=== PATIENT | female | born 1985 | race Hispanic/Latino ===

== ENCOUNTER 2016-11-15 13:01 | Emergency (ER) | payer OTHER ==
[~2016-11-15] VITALS: Ht 157.5 cm; Wt 86.4 kg
[~2016-11-15 13:01] MED LIST: CEPH500C PO; ONDA8TAB10 PO
[2016-11-15 13:31] VITALS: BP 143/93; PULSE 92; RESP 10; O2SAT 98
--- NOTE | 2016-11-15 15:44 | ED.REPORT ---
HPI-Overdose/Alcohol Toxicity Date of Service Nov 15, 2016 ED Provider: Doc,Ed MD History of Present Illness: body felt twitching, brain on fire, no motor skills. finished antibiotics for sinus infection 4 days ago. having headaches, congestion. anxiety high because of congestion. took a marijuaina mint and the above symptoms happened. Seen at the [facility]. had 2 rounds of antibiotics and nasal spray is helping. has bad headaches on an ongoing basis. Nothing different about this headache Nursing Notes Stated Complaint: REACTION TO MARIJUANA MINT Chief Complaint: Allergic Reaction Nursing Notes Reviewed: Yes Allergies: Coded Allergies: Penicillins (Verified Allergy, Severe, ANAPHYLAXIS, 09/29/15) metoclopramide (Verified Adverse Reaction, Mild, feeling of anxiety, ) Scheduled Cephalexin (Cephalexin) 500 Mg Capsule 500 MG PO QID Scheduled PRN Ondansetron ODT (Ondansetron ODT) 8 Mg Tab.rapdis 8 MG PO Q4H PRN PRN For Nausea General Time Seen by Provider: 15:44 Chief Complaint Intoxicated, illicit drug Hx Obtained From: Patient Onset Occurred: Just prior to arrival Risk-Overdose/Alcohol Tox )( Suicide Risk Stratification No: Access to firearms, Alcohol use, Close associate suicide, Family Hx of Suicide, Previous attempt, Prior psych admission, Substance abuse RF Statements: No risk factors Past Medical History Past Medical History Chronic constipation Post- depression Anxiety Intermittent HTN, non-diagnosed Migraines Reports: Asthma Past [facility] History [facility] Reports: Appendectomy Reports: Tubal ligation Smoking History Never Smoker Social History Alcohol Use: Denies alcohol use Drug Use: Denies drug use Other Social History: , Lives with children Occupation lives with , work at [employer] 11/15/2016 Ambulatory Status Independent Review of Systems Basic Review of Systems : No dysuria, No frequency Allergy / Immune: No allergy Physical Exam Initial Vital Signs Vital Signs (First) Date Time Temp Pulse Resp B/P Pulse Ox O2 Delivery O2 Flow Rate FiO2 11/15/16 13:31 36.4 92 10 143/93 98 Room Air Initial VS: Reviewed, Vital signs normal Head / Eyes: Atraumatic, Normocephalic, PERRL ENT: Mucous membranes moist, Conjunctiva normal, No scleral icterus Neck: Supple, Non-tender, Full range of motion Back: No CVA tenderness Lymphatic: No lymphadenopathy Extremities: Vascular intact, Neuro intact, No swelling, No tenderness Skin: Warm, Dry, No cyanosis General/Constitutional: Awake, Alert, No acute distress, Well appearing, Well developed, Well hydrated, Well nourished, Cooperative, Not toxic appearing Respiratory / Chest: Atraumatic, Breath sounds NL, Breath sounds = bilat, No respiratory distress Cardiovascular: Heart rate NL, Regular rhythm, Heart sounds NL, No gallop Abdomen: Atraumatic, Soft, Non-tender, McBurney's non-tender Neurologic: Oriented X3, Speech NL, No motor deficits All reported neuro symptoms have resolved by the time she was seen except for the headache Psychiatric: Affect NL, Mood NL, Not suicidal ENT: Atraumatic, Airway patent, Mucous membranes moist, Pharynx NL Interpretation & Diagnostics Lab Results Interpretation Test 11/15/16 19:00 Hold Urine Received (Received) CT Head Interpretation PROCEDURE: CT BRAIN WITHOUT CONTRAST ([id number]) INDICATIONS: loss of motor function TECHNIQUE: Noncontrast 4.5 mm thick angled axial sections acquired from the foramen magnum to the vertex, with coronal reformats. COMPARISON: None. FINDINGS: Image quality: Excellent. CSF spaces: Basal cisterns are patent. No extra-axial fluid collections. Ventricles are normal in size and shape. Brain: No midline shift. No intracranial masses or hemorrhage. Granados-white matter interface is normal. Skull and face: Calvarium and visualized facial bones are intact, without suspicious lesions. Sinuses: Visualized sinuses and mastoids are clear. IMPRESSION: 1. No acute intracranial process. Dictated by: Pam Sarmiento M.D. on 11/15/2016 at 16:46 Approved by: Pam Sarmiento M.D. on 11/15/2016 at 16:47 Re-Eval/Medical Decision Med Decision/Clinical Course 30 year old female presents to the ER with many concerns, can't open eyes, could not talk, felt her brain on fire. All symptoms have resolved by the time she was seen except for her chronic headache. Head CT including visualized sinuses are normal. Headache has resolved with toradol. Patient was encouraged to avoid Marijuiana mints Discharge & Departure Impression: Primary Impression: Drug reaction Encounter type: initial encounter Qualified Code: T88.7XXA - Unspecified adverse effect of drug or medicament, initial encounter Disposition: Home Additional Instructions: Avoid marijuana mints! The brain CT and the visualized portion of the sinuses and mastoids are clear. The symptoms have resolved. Please follow with primary care as scheduled. Referrals: OMAR SANDRA (PCP) EDSupervising Provider for APC: Jony Sifuentes MD copies to: OMAR SANDRA Sue ARNP Nov 15, 2016 15:44
--- NOTE | 2016-11-15 16:48 | DRSVH ---
PROCEDURE: CT BRAIN WITHOUT CONTRAST ([id number]) INDICATIONS: loss of motor function TECHNIQUE: Noncontrast 4.5 mm thick angled axial sections acquired from the foramen magnum to the vertex, with c oronal reformats. COMPARISON: None. FINDINGS: Image quality: Excellent. CSF spaces: Basal cisterns are patent. No extra-axial fluid collections. Ventricles are normal in size and shape. Brain: No midline shift. No intracranial masses or hemorrhage. Granados-white matter interface is norm al. Skull and face: Calvarium and visualized facial bones are intact, without suspicious lesions. Sinuses: Visualized sinuses and mastoids are clear. IMPRESSION: 1. No acute intracranial process. Dictated by: Pam Sarmiento M.D. on 11/15/2016 at 16:46 Approved by: Pam Sarmiento M.D. on 11/15/2016 at 16:47
[2016-11-15 17:58] VITALS: BP 134/87; PULSE 88; RESP 18; O2SAT 99
== END 2016-11-15 17:41 | disposition home or self-care (01) ==
LOC: SED 13:01
DX: R25.3 Fasciculation (principal); T40.7X5A Adverse effect of cannabis (derivatives), initial encounter; Y93.89 Activity, other specified; Y92.89 Other specified places as the place of occurrence of the external cause; Y99.8 Other external cause status; R51 Headache; R09.81 Nasal congestion; F41.8 Other specified anxiety disorders; I10 Essential (primary) hypertension; J45.909 Unspecified asthma, uncomplicated; Z88.0 Allergy status to penicillin; Z88.8 Allergy status to other drugs, medicaments and biological substances
CPT/HCPCS: 70450; 81025; 96372; 99285; J1885